=== PATIENT | female | born 1995 | race African-American/Black ===

== ENCOUNTER → 2016-10-18 | Outpatient (CLI) | payer OTHER ==
[~2016-10-18] MED LIST: AMPH30TA2 PO
--- NOTE | 2016-10-18 16:44 | DIAGNOSTIC IMAGING REPORT ---
RIGHT FOURTH FINGER 3 VIEWS HISTORY: RIGHT 4TH FINGER PAIN Right COMPARISON: None. FINDINGS: There is no fracture or dislocation. Soft tissue swelling at the PIP joint. No radiopaque foreign bodies. IMPRESSION: No fractures. Electronically signed by: Tyler Calhoun M.D. 10/18/2016 4:42 PM Dictated Date/Time: 10/18/2016 4:41 PM
== END | disposition home or self-care (01) ==
LOC: C.RDSM 16:02
PROVIDERS: ATTEND Internal Medicine
DX: M79.644 Pain in right finger(s) (principal)

== ENCOUNTER → 2017-10-20 | Outpatient (CLI) | payer OTHER ==
[~2017-10-20] MED LIST changes: +GADAVIST IV PRN
--- NOTE | 2017-10-20 11:43 | DIAGNOSTIC IMAGING REPORT ---
R INJECTION SHOULDER PRE MRI FLUOROSCOPY TIME: 23 seconds CLINICAL HISTORY: 22 years-old Female with RT SHOULDER CHRONIC PAIN. Chronic right shoulder pain PROCEDURE: After obtaining written informed consent, the patient was placed supine on the fluoroscopy table. A suitable site for needle insertion was marked using fluoroscopic guidance. The right shoulder was prepped and draped in the usual sterile fashion. 1% lidocaine was used for skin, subcutaneous and deep soft tissue anesthesia. Under intermittent fluoroscopic guidance, a 22 gauge 2.5 inch spinal needle was inserted into the right glenohumeral joint. A total of 10 cc of one-to-one mixture of dilute Magnevist (0.1 cc in 10 cc saline) and Optiray 300 were injected. The spot fluoroscopic image also demonstrates fluid within the periarticular soft tissues anterior to the glenohumeral joint secondary to needle movement during the procedure. The needle was then removed. There were no apparent complications. The patient was transported to MR for further imaging. IMPRESSION: Fluoroscopic-guided right shoulder arthrogram without immediate complication. The above report was generated using voice recognition software. It may contain grammatical, syntax or spelling errors. Electronically signed by: Samuel Mckee M.D. 10/20/2017 11:42 AM Dictated Date/Time: 10/20/2017 11:40 AM
--- NOTE | 2017-10-20 12:18 | DIAGNOSTIC IMAGING REPORT ---
R UPPER EXT JOINT WITH CLINICAL HISTORY: 22 years-old Female with RT SHOULDER CHRONIC PAIN. Chronic right shoulder pain COMPARISON: Right shoulder radiographs 06/14/2016. TECHNIQUE: Multiplanar, multi sequence MRI of the right shoulder was performed without intravenous contrast. FINDINGS: ROTATOR CUFF: The tendons of the rotator cuff including the supraspinatus, infraspinatus, teres minor and subcapularis are intact. The rotator cuff musculature is normal in morphology and signal. BICEPS TENDON: The long-head biceps tendon is intact. No evidence of tendinosis. The biceps darrin and anchor are intact. LABRUM: There is thickening with irregularity of the anteroinferior labrum nicely seen on image 13 of series 4 with linear contrast extension into the labrum compatible with tear. No displaced fragment or paralabral cyst. The remainder of the labrum appears intact and unremarkable. GLENOHUMERAL JOINT: The articular cartilage overlying the glenoid fossa is normal. There is no loose body or debris present within the glenohumeral joint. ACROMIOCLAVICULAR JOINT: The AC joint is intact without significant degenerative change or mass effect. No evidence of os acromiale. No subacromial/subdeltoid bursitis. OUTLET SPACES: The suprascapular notch and quadrilateral space are without obstructing or space occupying lesions. BONE MARROW: No fracture or marrow occupying lesion. Mild subcortical cystic changes are seen within the posterior facet of the greater tuberosity, image 13 series 7 and image 9 series 4. 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 SOFT TISSUES: The periarticular soft tissues are unremarkable. Injection of contrast material containing gadolinium was inadvertently partially injected into the periarticular tissues and adjacent musculature. IMPRESSION: 1. Tear of the anteroinferior labrum without displaced fragment or paralabral cyst identified. 2. 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 3. Rotator cuff and long head biceps tendon appear normal. The above report was generated using voice recognition software. It may contain grammatical, syntax or spelling errors. Electronically signed by: Samuel Mckee M.D. 10/20/2017 12:16 PM Dictated Date/Time: 10/20/2017 12:04 PM
== END | disposition home or self-care (01) ==
LOC: C.MRIBC 10:49
PROVIDERS: ATTEND Internal Medicine
DX: M25.511 Pain in right shoulder (principal); S43.431A Superior glenoid labrum lesion of right shoulder, initial encounter; X58.XXXA Exposure to other specified factors, initial encounter; M85.9 Disorder of bone density and structure, unspecified